=== PATIENT | female | born 1995 | race Caucasian/White ===

== ENCOUNTER 2016-09-10 18:02 | Emergency (ER) | payer OTHER ==
[2016-09-10 18:47] VITALS: BP 133/71
--- NOTE | 2016-09-10 18:58 | UC ---
Throat Pain/Nasal Daryn HPI - HPI Summary HPI Summary: cough, chills, wheeze for 3 days - History of Current Complaint Chief Complaint: UCGeneralIllness Stated Complaint: SORE THROAT COUGH BODYACHES Time Seen by Provider: 09/10/16 18:34 Hx Last Menstrual Period: 09/10/16 ?: No Onset/Duration: Sudden Onset, Lasting Days - 3 Severity: Moderate Cough: Productive Associated Signs & Symptoms: Positive: Wheezing, Nasal Discharge, Fever - Allergies/Home Medications Allergies/Adverse Reactions: Allergies Allergy/AdvReac Type Severity Reaction Status Date / Time Acetaminophen [From Tylenol] Allergy Unknown Difficulty Verified 09/10/16 18:41 Breathing PMH/Surg Hx/FS Hx/Imm Hx Previously Healthy: No - Opiate addiction in remission Respiratory History Of: Reports: Asthma - Surgical History Surgical History: None Surgery Procedure, Year, and Place: DENIES - Family History Known Family History: Positive: None Negative: Cardiac Disease, Hypertension Family History: no cardiovascular issues in family lineage - Social History Occupation: Employed Part-time, Student Lives: Alone Alcohol Use: Occasionally Substance Use Type: None Substance Use Comment - Amount & Last Used: former Heroin user Smoking Status (MU): Current Some Day Smoker Have You Smoked in the Last Year: No When Did the Patient Quit Smoking/Using Tobacco: 13 months ago - Immunization History Most Recent Influenza Vaccination: 2013 Most Recent Tetanus Shot: up to date Review of Systems Constitutional: Fever, Chills Skin: Negative Eyes: Negative ENT: Negative Respiratory: Cough Cardiovascular: Negative Gastrointestinal: Negative Genitourinary: Negative Motor: Negative Neurovascular: Negative Musculoskeletal: Negative Neurological: Negative Psychological: Negative All Other Systems Reviewed And Are Negative: Yes Physical Exam Triage Information Reviewed: Yes Appearance: No Pain Distress, Well-Nourished, Ill-Appearing - mild Vital Signs: Initial Vital Signs Temp 99.6 F 09/10/16 18:42 Pulse 92 09/10/16 18:42 Resp 18 09/10/16 18:42 BP 133/71 09/10/16 18:42 Pulse Ox 96 09/10/16 18:42 Vital Signs Reviewed: Yes Eye Exam: Normal Eyes: Positive: Conjunctiva Clear ENT Exam: Normal ENT: Positive: Normal ENT inspection, Hearing grossly normal, Pharynx normal, TMs normal. Negative: Nasal congestion, Nasal drainage, Tonsillar swelling, Tonsillar exudate, Trismus, Muffled/hoarse voice Dental Exam: Normal Neck exam: Normal Neck: Positive: Supple, Nontender, No Lymphadenopathy Respiratory Exam: Other Respiratory: Positive: Chest non-tender, No respiratory distress, No accessory muscle use, Wheezing Cardiovascular Exam: Normal Cardiovascular: Positive: RRR, No Murmur, Pulses Normal, Brisk Capillary Refill Musculoskeletal Exam: Normal Musculoskeletal: Positive: Strength Intact, ROM Intact, No Edema Neurological Exam: Normal Neurological: Positive: Alert, Muscle Tone Normal Psychological Exam: Normal Skin Exam: Normal Throat Pain/Nasal Course/Dx - Course Assessment/Plan: albuterol, prednisone, zithromax increase fluids, follow with pcp re-check prn - Differential Dx/Diagnosis Differential Diagnosis/HQI/PQRI: Influenza, Otitis Media, Pharyngitis, Sinusitis , URI Provider Diagnoses: Acute exacerbation asthma, bronchitis Discharge - Discharge Plan Condition: Stable Disposition: HOME Prescriptions: Albuterol HFA INHALER* [Ventolin HFA Inhaler*] 2 puff INH Q6H PRN #1 mdi PRN Reason: cough/wheeze Azithromycin TAB* [Zithromax TAB (Z-MINERVA) 250 mg #6 tabs] 2 tab PO .TODAY, THEN 1 DAILY #1 minerva predniSONE TAB* [Deltasone TAB*] 10 mg PO DAILY #20 tab Patient Education Materials: How to Use a Metered-Dose Inhaler (ED), Acute Bronchitis (ED), Wheezing (ED) Forms: *School Release Referrals: Simone Ceballos MD [Primary Care Provider] - If Needed
== END 2016-09-10 19:14 | disposition home or self-care (01) ==
LOC: UCEAST 18:02
DX: J45.901 Unspecified asthma with (acute) exacerbation (principal); Z88.6 Allergy status to analgesic agent; Z72.0 Tobacco use
CPT/HCPCS: 99212; G0463

== ENCOUNTER 2017-04-08 18:48 | Emergency (ER) | payer OTHER ==
--- NOTE | 2017-04-08 18:59 | UC ---
Abdominal Pain Female HPI - HPI Summary HPI Summary: 22 YEAR OLD FEMALE PRESENTS WITH COMPLAINS OF DIFFUSE ABDOMINAL PAIN. - History of Current Complaint Chief Complaint: UCAbdominalPain Stated Complaint: ABDOMINAL COMPLAINT Hx Obtained From: Patient Hx Last Menstrual Period: due any day Onset/Duration: Sudden Onset Timing: Constant Severity Initially: Moderate Severity Currently: Moderate Pain Scale Used: 0-10 Numeric - 5 Location: Diffuse Character: Aching Aggravating Factor(s): Nothing Alleviating Factor(s): Nothing Associated Signs and Symptoms: Positive: Negative Allergies/Adverse Reactions: Allergies Allergy/AdvReac Type Severity Reaction Status Date / Time Acetaminophen [From Tylenol] Allergy Unknown Difficulty Verified 04/08/17 18:54 Breathing PMH/Surg Hx/FS Hx/Imm Hx Previously Healthy: Yes Other History Of: Negative For: HIV, Hepatitis B, Hepatitis C, Anticoagulant Therapy - Surgical History Surgical History: None Surgery Procedure, Year, and Place: DENIES - Family History Known Family History: Positive: None Negative: Cardiac Disease, Hypertension Family History: no cardiovascular issues in family lineage - Social History Alcohol Use: Occasionally Substance Use Type: None Substance Use Comment - Amount & Last Used: former Heroin user Smoking Status (MU): Former Smoker Have You Smoked in the Last Year: No When Did the Patient Quit Smoking/Using Tobacco: 13 months ago - Immunization History Most Recent Influenza Vaccination: 2013 Most Recent Tetanus Shot: up to date Review of Systems Constitutional: Negative Skin: Negative Eyes: Negative ENT: Negative Respiratory: Negative Cardiovascular: Negative Gastrointestinal: Abdominal Pain - DIFFUSE Genitourinary: Negative Motor: Negative Neurovascular: Negative Musculoskeletal: Negative Neurological: Negative Psychological: Negative All Other Systems Reviewed And Are Negative: Yes Physical Exam Triage Information Reviewed: Yes Vital Signs: Initial Vital Signs Temp 37.1 C 04/08/17 18:49 Pulse 87 04/08/17 18:49 Resp 18 04/08/17 18:49 BP 118/74 04/08/17 18:49 Pulse Ox 98 04/08/17 18:49 Vital Signs Reviewed: Yes Eye Exam: Normal ENT Exam: Normal Dental Exam: Normal Neck exam: Normal Neck: Positive: 1 Respiratory Exam: Normal Cardiovascular Exam: Normal Abdomen Description: Positive: Other: - DIFFUSE ABDOMINAL TENDERNESS Musculoskeletal Exam: Normal Neurological Exam: Normal Psychological Exam: Normal Skin Exam: Normal Abd Pain Female Course/Dx - Differential Dx/Diagnosis Provider Diagnoses: ABDOMINAL TENDERNESS Discharge - Discharge Plan Condition: Stable Disposition: HOME Prescriptions: Nitrofurantoin Monohyd Macro [Macrobid] 100 mg PO BID #14 cap Patient Education Materials: Abdominal Pain (ED) Forms: *School Release Referrals: Simone Ceballos MD [Primary Care Provider] -
[2017-04-08 19:04] VITALS: BP 118/74
== END 2017-04-08 19:40 | disposition home or self-care (01) ==
LOC: UCEAST 18:48
DX: R10.819 Abdominal tenderness, unspecified site (principal); Z32.02 Encounter for pregnancy test, result negative; Z87.891 Personal history of nicotine dependence; Z88.6 Allergy status to analgesic agent
CPT/HCPCS: 81003; 84702; 99212; G0463

== ENCOUNTER 2017-08-06 15:44 | Emergency (ER) | payer OTHER ==
[2017-08-06 16:40] VITALS: BP 121/68
--- NOTE | 2017-08-06 17:43 | UC ---
Throat Pain/Nasal Daryn HPI - HPI Summary HPI Summary: Pt presents to ED with 2 days of nasal congestion, PND and cough. Pt denies fevers, chills. + sick contacts. Pt has taken motrin/apap with little improvement. No rash. States cough worse at night. No cp, sob. No abd pain. Pt denies HUGHES, vision changes. No mylagias, arthralgias. Pt did not get influenza vacc this year. Pt's medications reviewed this visit - History of Current Complaint Chief Complaint: UCGeneralIllness Stated Complaint: URI Time Seen by Provider: 08/06/17 17:18 Hx Obtained From: Patient Hx Last Menstrual Period: 3 weeks ago Onset/Duration: Gradual Onset Severity: Mild Associated Signs & Symptoms: Positive: Negative - Allergies/Home Medications Allergies/Adverse Reactions: Allergies Allergy/AdvReac Type Severity Reaction Status Date / Time Acetaminophen [From Tylenol] Allergy Unknown Difficulty Verified 08/06/17 16:40 Breathing PMH/Surg Hx/FS Hx/Imm Hx Previously Healthy: Yes Other History Of: Negative For: HIV, Hepatitis B, Hepatitis C, Anticoagulant Therapy - Surgical History Surgical History: None Surgery Procedure, Year, and Place: DENIES - Family History Known Family History: Positive: None Negative: Cardiac Disease, Hypertension Family History: no cardiovascular issues in family lineage - Social History Occupation: Employed Full-time Lives: With Family Alcohol Use: Occasionally Substance Use Type: None Substance Use Comment - Amount & Last Used: former Heroin user Smoking Status (MU): Former Smoker Have You Smoked in the Last Year: No When Did the Patient Quit Smoking/Using Tobacco: 13 months ago - Immunization History Most Recent Influenza Vaccination: 2013 Most Recent Tetanus Shot: up to date Review of Systems Constitutional: Chills ENT: Nasal Discharge, Sinus Congestion Respiratory: Cough - at night Cardiovascular: Negative All Other Systems Reviewed And Are Negative: Yes Physical Exam Triage Information Reviewed: Yes Appearance: Well-Appearing, No Pain Distress, Well-Nourished Vital Signs: Initial Vital Signs Temp 97.7 F 08/06/17 16:37 Pulse 103 08/06/17 16:37 Resp 19 08/06/17 16:37 BP 121/68 08/06/17 16:37 Vital Signs Reviewed: Yes Eye Exam: Normal Eyes: Positive: Conjunctiva Clear ENT: Positive: Pharynx normal, Nasal congestion, Nasal drainage, Other - + fluid b/l ears no erythema, no buldging turbinates inflammed and boggy + PND no exudate, no erythema, uvula midline Dental Exam: Normal Neck exam: Normal Neck: Positive: Supple, Nontender, No Lymphadenopathy Respiratory Exam: Normal Respiratory: Positive: Chest non-tender, Lungs clear, Normal breath sounds, No respiratory distress, No accessory muscle use, Other: - CTA througoout no w/r No increased WOB Cardiovascular Exam: Normal Cardiovascular: Positive: RRR, No Murmur, Pulses Normal Abdominal Exam: Normal Abdomen Description: Positive: Nontender, No Organomegaly, Soft Bowel Sounds: Positive: Present Musculoskeletal Exam: Normal Musculoskeletal: Positive: Strength Intact Neurological Exam: Normal Neurological: Positive: Alert Psychological Exam: Normal Skin Exam: Normal Throat Pain/Nasal Course/Dx - Course Course Of Treatment: Pt presents to ED with nasal congestion and PND x 48 hours. Pt with stable VS. Pt well appearing. d/w pt likely viral URI. Will give flonase, decongestant, tessalon pearls. secretion precautions. Pt comfortable and in agreement with plan - Differential Dx/Diagnosis Provider Diagnoses: URI Discharge - Discharge Plan Condition: Stable Disposition: HOME Prescriptions: Benzonatate CAP* [Tessalon 100 MG CAP*] 100 mg PO TID #15 cap Fluticasone NASAL SPRAY 50MCG* [Flonase NASAL SPRAY 50MCG*] 1 spray BOTH NARES DAILY #1 btl Patient Education Materials: Upper Respiratory Infection (ED) Referrals: Simone Ceballos MD [Primary Care Provider] - Additional Instructions: - Stay well hydrated. Drink plenty of non-alcoholic, non-caffinated beverages. - alternate ibuprofen (Advil, Motrin) and Tylenol every 3 hours for fever - Use nasal spray as instructed - Okay to use over the counter cough medication or cough medication as prescribed - These infections are spread by secretions - do NOT share eating or drinking utensils - clean items you share with other people such as cell phones, computer mouse, TV remote, computer tablets, etc. - Get plenty of restful sleep - Humidify the room the where you sleep - boil water, hot steam shower, bowl of water by heat vents - Contact your doctor to schedule a follow-up appointment. Contact your doctor or return with questions or concerns
== END 2017-08-06 18:00 | disposition home or self-care (01) ==
LOC: UCEAST 15:44
DX: J06.9 Acute upper respiratory infection, unspecified (principal); Z87.891 Personal history of nicotine dependence; F11.11 Opioid abuse, in remission; Z72.89 Other problems related to lifestyle
CPT/HCPCS: 99212; G0463

== ENCOUNTER 2017-10-13 13:56 | Emergency (ER) | payer OTHER ==
[2017-10-13 14:09] VITALS: BP 117/65
--- NOTE | 2017-10-13 14:12 | UC ---
Ear Complaint HPI - HPI Summary HPI Summary: Pt presents with multiple complaints: 1) She has had right ear pain and right sided sore throat for the last two days 2) About 4-5 days ago she felt like her heart was "squeezing" and says it made it anxious. Has not had any symptoms since that time. Had no dizziness or SOB. This sensation lasted less than 1 minute and then did not return. 3) She is having vaginal discharge and thinks she may have BV, as she has had this before and her symptoms are the same. She is sexually active with her boyfriend in a monogamous relationship. Would like testing for GC/Chlamydia as well. Denies fever, chills, cough, SOB, chest pain, abdominal pain, n/v/d/c, headache , dizziness, or body aches. - History of Current Complaint Chief Complaint: UCEar Stated Complaint: EAR PAIN Time Seen by Provider: 10/13/17 14:12 Hx Obtained From: Patient Hx Last Menstrual Period: 09/23/17 Onset/Duration: Gradual Onset Severity Initially: Moderate Severity Currently: Moderate Pain Intensity: 5 Pain Scale Used: 0-10 Numeric - Allergies/Home Medications Allergies/Adverse Reactions: Allergies Allergy/AdvReac Type Severity Reaction Status Date / Time acetaminophen [From Tylenol] Allergy Difficulty Verified 10/13/17 14:03 Breathing Home Medications: Home Medications Omeprazole CAP* [Prilosec CAP* 20 MG] 20 mg PO DAILY 10/13/17 [History Confirmed 10/13/17] PMH/Surg Hx/FS Hx/Imm Hx Previously Healthy: Yes GI/ History: Gastroesophageal Reflux Other History Of: Negative For: HIV, Hepatitis B, Hepatitis C, Anticoagulant Therapy - Surgical History Surgical History: None Surgery Procedure, Year, and Place: DENIES - Family History Known Family History: Positive: None Negative: Cardiac Disease, Hypertension Family History: no cardiovascular issues in family lineage - Social History Occupation: Employed Full-time Lives: With Family Alcohol Use: Occasionally Alcohol Amount: every other day Substance Use Type: Marijuana Substance Use Comment - Amount & Last Used: former Heroin user Smoking Status (MU): Former Smoker Have You Smoked in the Last Year: No When Did the Patient Quit Smoking/Using Tobacco: 13 months ago - Immunization History Most Recent Influenza Vaccination: 2013 Most Recent Tetanus Shot: up to date Review of Systems Constitutional: Negative Skin: Negative Eyes: Negative ENT: Sore Throat, Ear Ache Respiratory: Negative Cardiovascular: Negative Genitourinary: Vaginal/Penile Discharge Motor: Negative Neurovascular: Negative Musculoskeletal: Negative Neurological: Negative Psychological: Negative All Other Systems Reviewed And Are Negative: Yes Physical Exam Triage Information Reviewed: Yes Appearance: Well-Appearing, No Pain Distress, Obese Vital Signs: Initial Vital Signs Temp 98.9 F 10/13/17 14:00 Pulse 84 10/13/17 14:00 Resp 16 10/13/17 14:00 BP 117/65 10/13/17 14:00 Pulse Ox 100 10/13/17 14:00 Vital Signs Reviewed: Yes Eyes: Positive: Conjunctiva Clear. Negative: Conjunctiva Inflamed, Discharge ENT: Positive: Hearing grossly normal, Pharyngeal erythema, TMs normal, Tonsillar swelling - 3+ Right side, Tonsillar exudate - Right side, Uvula midline. Negative: Nasal congestion, Nasal drainage, TM bulging, TM dull, TM red, Muffled voice, Hoarse voice, Sinus tenderness Neck: Positive: Supple, Other: - Anterior LAD with mild tenderness on right Respiratory: Positive: Chest non-tender, Lungs clear, Normal breath sounds, No respiratory distress, No accessory muscle use Cardiovascular: Positive: RRR, No Murmur, Pulses Normal Abdomen Description: Positive: Nontender, No Organomegaly, Soft. Negative: CVA Tenderness (R), CVA Tenderness (L), Distended, Guarding Bowel Sounds: Positive: Present Neurological: Positive: Alert, Muscle Tone Normal Psychological: Positive: Age Appropriate Behavior Skin: Negative: rashes, significant lesion(s) - Additional Comments Pelvic exam: External genitalia: No lesions or erythema. Nontender Vagina: Rugated, copious white thin and yellow discharge. No odor. Cervix: No motion tenderness, patent os with surrounding thin white and yellow discharge. No lesions. Ear Complaint Course/Dx - Course Course Of Treatment: Pelvic exam accompanied by Stephen BROWN. 1) I suspect she has the beginning of a right sided peritonsillar abscess and will treat her with po Augmentin as she is tolerating foods and liquids without difficulty. 2 ) EKG was performed and 76 bpm with RBBB. No ST changes as read by Dr. Phillips. She is asymptomatic regarding her cardiac complaint at this time, and has been for the ast 4 days. I advised her to f/u with her PCP regarding her heart "squeezing" if her symptoms return. 3) Her pelvic exam is suspicius for BV - thus I will start her with Flagyl and send for cultures. UA also revealed 1+ leuk in the abscence of urinary symptoms. Urine culture was sent. If she does have a UTI she should, most likely, be covered by the Augmentin mentioned above. Urine GC/Chlamydia was also sent. She was offered further STD testing, but declined due to not wanting to have blood taken. - Differential Dx/Diagnosis Provider Diagnoses: Vaginal discharge. Right peritonsillar abscess. Chest pressure Discharge - Discharge Plan Condition: Stable Disposition: HOME Prescriptions: Amoxicillin/Clavulanate TAB* [Augmentin TAB 875*] 875 mg PO BID #20 tab metroNIDAZOLE [Flagyl] 500 mg PO BID #14 tablet Patient Education Materials: Bacterial Vaginosis (ED), Peritonsillar Abscess ( ED) Forms: *School Release, *Work Release Referrals: Simone Ceballos MD [Primary Care Provider] - Additional Instructions: If you develop a fever, shortness of breath, chest pain, new or worsening symptoms - please call your PCP or go to the ED.
--- NOTE | 2017-10-14 17:32 | UC ---
- Progress Note Progress Note: Pt with positive Gardnerella and Trich. She is currently taking Flagyl for 7 days BID. This should cover both. Please let her know.
== END 2017-10-13 14:59 | disposition home or self-care (01) ==
LOC: UCEAST 13:56
DX: N89.8 Other specified noninflammatory disorders of vagina (principal); A59.01 Trichomonal vulvovaginitis; B96.89 Other specified bacterial agents as the cause of diseases classified elsewhere; J36 Peritonsillar abscess; R07.89 Other chest pain; Z32.02 Encounter for pregnancy test, result negative; K21.9 Gastro-esophageal reflux disease without esophagitis; Z88.6 Allergy status to analgesic agent; Z87.891 Personal history of nicotine dependence
CPT/HCPCS: 81003; 84702; 87086; 87480; 87491; 87510; 87591; 87661; 93005; 99212; G0463

== ENCOUNTER 2019-11-13 16:01 | Emergency (ER) | payer OTHER ==
--- NOTE | 2019-11-13 16:04 | UC ---
Skin Complaint HPI - HPI Summary HPI Summary: patient awoke three days ago with an insect bite inside left upper arm---Is concerned because it is red and itchy did not see a tick - History of Current Complaint Chief Complaint: UCRespiratory Time Seen by Provider: 11/13/19 16:03 Stated Complaint: TICK Hx Obtained From: Patient Hx Last Menstrual Period: 09/23/17 ?: No Onset/Duration: Sudden Onset, Lasting Days - 3, Still Present Timing: Constant Pain Intensity: 0 Location: Discrete Character: Redness, Raised Aggravating Factor(s): Nothing Alleviating Factor(s): Nothing Associated Signs & Symptoms: Negative: Tenderness, Red Streaks - Allergy/Home Medications Allergies/Adverse Reactions: Allergies Allergy/AdvReac Type Severity Reaction Status Date / Time acetaminophen [From Tylenol] Allergy Difficulty Verified 10/13/17 14:03 Breathing Home Medications: Home Medications Amoxicillin/Clavulanate TAB* [Augmentin TAB 875*] 875 mg PO BID #20 tab [Rx] Omeprazole CAP (NF) [Prilosec CAP* 20 MG] 20 mg PO DAILY 10/13/17 [History Confirmed 10/13/17] metroNIDAZOLE [Flagyl] 500 mg PO BID #14 tablet 10/13/17 [Rx] PMH/Surg Hx/FS Hx/Imm Hx Previously Healthy: Yes Other History Of: Negative For: HIV, Hepatitis B, Hepatitis C, Anticoagulant Therapy - Surgical History Surgical History: None Surgery Procedure, Year, and Place: DENIES - Family History Known Family History: Positive: None Negative: Cardiac Disease, Hypertension Family History: no cardiovascular issues in family lineage - Social History Occupation: Unemployed Lives: With Family Alcohol Use: Occasionally Alcohol Amount: every other day Substance Use Type: Marijuana Substance Use Comment - Amount & Last Used: former Heroin user Smoking Status (MU): Former Smoker Have You Smoked in the Last Year: No When Did the Patient Quit Smoking/Using Tobacco: 13 months ago - Immunization History Most Recent Influenza Vaccination: 2013 Most Recent Tetanus Shot: up to date Review of Systems All Other Systems Reviewed And Are Negative: Yes Constitutional: Positive: Negative Skin: Positive: Other - nickel size aera of erythema raise and itchy inside of right arm Eyes: Positive: Negative ENT: Positive: Negative Respiratory: Positive: Negative Cardiovascular: Positive: Negative Gastrointestinal: Positive: Negative Genitourinary: Positive: Negative Motor: Positive: Negative Neurovascular: Positive: Negative Musculoskeletal: Positive: Negative Neurological/Mental Status: Positive: Negative Psychological: Positive: Negative Is Patient Immunocompromised?: No Physical Exam Triage Information Reviewed: Yes Appearance: Well-Appearing, No Pain Distress, Well-Nourished Vital Signs Reviewed: Yes Eye Exam: Normal Eyes: Positive: Conjunctiva Clear ENT Exam: Normal ENT: Positive: Normal ENT inspection, Hearing grossly normal. Negative: Trismus , Muffled voice, Hoarse voice Dental Exam: Normal Neck exam: Normal Neck: Positive: Supple, Nontender Respiratory Exam: Normal Respiratory: Positive: Chest non-tender, No respiratory distress, No accessory muscle use Cardiovascular Exam: Normal Cardiovascular: Positive: RRR, Pulses Normal, Brisk Capillary Refill Musculoskeletal Exam: Normal Musculoskeletal: Positive: Strength Intact, ROM Intact, No Edema Neurological Exam: Normal Neurological: Positive: Alert, Muscle Tone Normal Psychological Exam: Normal Skin: Positive: Other - nickel size area of erythema on inner left upper arm, raised and red patient reports it to be itchy Course/Dx - Course Course Of Treatment: ice, hydrocortisone, Benadryl follow with pcp prn - Diagnoses Provider Diagnosis: Insect bite Discharge ED - Sign-Out/Discharge Documenting (check all that apply): Patient Departure All imaging exams completed and their final reports reviewed: No Studies - Discharge Plan Condition: Stable Disposition: HOME Patient Education Materials: Diphenhydramine (By mouth), Hydrocortisone (On the skin), Insect Bite or Sting (ED), Ice Pack Application (ED) Referrals: Simone Ceballos MD [Primary Care Provider] - If Needed - Billing Disposition and Condition Condition: STABLE Disposition: Home
== END 2019-11-13 16:15 | disposition home or self-care (01) ==
LOC: UCEAST 16:01
DX: S40.862A Insect bite (nonvenomous) of left upper arm, initial encounter (principal); W57.XXXA Bitten or stung by nonvenomous insect and other nonvenomous arthropods, initial encounter; Y92.9 Unspecified place or not applicable; Z88.6 Allergy status to analgesic agent; Z87.891 Personal history of nicotine dependence
CPT/HCPCS: 99201; G0463